=== PATIENT | male | born 1965 | race African-American/Black ===

== ENCOUNTER 2022-06-26 06:34 | Emergency (ER) | payer MEDICAID ==
[~2022-06-26] VITALS: Ht 175.3 cm; Wt 68.2 kg
[2022-06-26 06:45] VITALS: BP 131/94
[2022-06-26] MEDS: MAGNESIUM/ALUMINUM HYDROXIDE/SIMETHICONE 30ML UDC PO STA (10:05)
[2022-06-26] MEDS: VISCOUS LIDOCAINE 2% 15 ML UDC PO STA (10:05)
[2022-06-26] MEDS ORDERED: MAG-55 MT (10:17)
== END 2022-06-26 10:39 | disposition home or self-care (01) ==
LOC: ER 06:34
DX: R13.10 Dysphagia, unspecified (principal); F12.10 Cannabis abuse, uncomplicated
CPT/HCPCS: 71045; 99283